=== PATIENT | female | born 1985 | race Caucasian/White ===

== ENCOUNTER 2020-03-01 10:46 | Emergency (ER) | payer OTHER, SELFPAY ==
[2020-03-01 11:03] VITALS: BP 127/79; PULSE 81; RESP 16; TEMP 37.1; O2SAT 99
--- NOTE | 2020-03-01 11:10 | ED.URI ---
HPI - URI/Sore Throat General Chief Complaint: Upper Respiratory Infection Stated Complaint: Congestion/fever Time Seen by Provider: 03/01/20 11:10 Source: patient and RN notes reviewed History of Present Illness HPI Narrative: Patient is a 34-year-old female who presents the urgent care with complaints of mild congestion and a low-grade fever of 99.7. Patient states that she took her temperature several times and it was 99.3 and 99.7 Fahrenheit. Patient has not taken anything for her symptoms and wanted to make sure it was not just seasonal allergies like her told her . Patient denies of any frequent coughing, sore throat, nausea, vomiting, body aches, fatigue. Denies of shortness of breath. No other acute complaints. No acute distress noted. Patient aware of the plan of care. Related Data Home Medications Medication Instructions Recorded Confirmed No Home Medications 03/01/20 03/01/20 Allergies Allergy/AdvReac Type Severity Reaction Status Date / Time ampicillin Allergy Severe hives Verified 03/01/20 11:11 Review of Systems Review of Systems: Narrative: CONSTITUTIONAL: Reports of a temperature of 99.7 Fahrenheit EYES: Denies visual changes, redness, or discharge. ENT: Denies rhinorrhea, sore throat, or otalgia. Reports of mild congestion CARDIOVASCULAR: Denies chest pain, palpitations, or edema. RESPIRATORY: Denies cough or dyspnea. GASTROINTESTINAL: Denies abdominal pain, nausea, vomiting, or diarrhea. GENITOURINARY: Denies dysuria or hematuria. SKIN: Denies rash or itching. MUSCULOSKELETAL: Denies back pain, joint pain, or myalgia. NEUROLOGIC: Denies headache, numbness, or weakness. All other systems reviewed are negative, except as documented in HPI. PMFSH Comments At the time of my signature, I reviewed and agree with the nursing past medical, surgical, social, and family history. There is no relevant family history pertinent to the patient complaint. Exam Narrative: Exam Narrative: GENERAL: This is a well-nourished, well-developed patient, in no apparent distress. HEAD: normocephalic, atraumatic. EYES: PERRL. Sclera clear/white. Vision is grossly intact. EARS: External ears normal, auditory canals clear and without drainage, TMs normal without perforation. Hearing grossly intact. NOSE: External nose normal with no obvious nasal discharge, nares without redness, no rhinorrhea. THROAT: Mucous membranes moist, posterior pharynx clear. Mild postnasal drainage NECK: Neck supple CARDIOVASCULAR: Regular rate and rhythm without murmurs, gallops, or rubs. RESPIRATORY: Clear to auscultation. Breath sounds equal bilaterally. No wheezes, rales, or rhonchi. SKIN: warm, intact with no suspicious lesions or rash, good texture and turgor. NEURO: awake, alert, and oriented to person, place and time. There were no obvious focal neurologic abnormalities. EXTREMITIES: No clubbing, cyanosis, or edema. Course Vital Signs Vital signs: Vital Signs Temperature 98.7 F 03/01/20 11:03 Pulse Rate 81 03/01/20 11:03 Respiratory Rate 16 03/01/20 11:03 Blood Pressure 127/79 03/01/20 11:03 Pulse Oximetry 99 03/01/20 11:03 Temperature 98.7 F 03/01/20 11:03 Pulse Rate 81 03/01/20 11:03 Respiratory Rate 16 03/01/20 11:03 Blood Pressure 127/79 03/01/20 11:03 Pulse Oximetry 99 03/01/20 11:03 Reviewed MDM - URI/Sore Throat MDM Narrative Medical decision making narrative: Advised the patient to increase fluids and rest if necessary. At this time, there is no need for COVID testing or antibiotic therapy. Symptoms are likely related to weather change and some possible mild seasonal allergies. Use [id number] medication such as Claritin or Zyrtec as needed. Temperature is currently afebrile. Be sure to use appropriate measures to check your temperature and a good thermometer. If you develop any increase in symptoms associated with temperature consistently over 100.4 Fahrenheit, nausea,
== END 2020-03-01 11:20 | disposition home or self-care (01) ==
PROVIDERS: Emergency Provider Nurse Practitioner Family
DX: R09.82 Postnasal drip (principal)
CPT/HCPCS: 99211; G0463

== ENCOUNTER 2023-07-26 05:44 | Emergency (ER) | payer OTHER, SELFPAY ==
[2023-07-26] VITALS (8 sets, daily range): BP systolic 103–119; BP diastolic 60–78; PULSE 88–124; RESP 16–28; TEMP 37.2; O2SAT 96–100
--- NOTE | ~2023-07-26 | XR_ITS ---
XR chest 2V DATE: 07/26/2023 06:45 INDICATION: Chest heaviness, shortness of breath TECHNIQUE: PA and lateral views COMPARISON: None FINDINGS: Normal heart size. No hilar or mediastinal enlargement. No pulmonary infiltrate or consolid ation, pleural effusion or pulmonary vascular congestion or pneumothorax. Included skeletal structures are unremarkable. Mild thoracic dextroscoliosis. IMPRESSION: No active cardiopulmonary disease Reviewed, dictated and finalized at location [facility]. [employer]
--- NOTE | 2023-07-26 05:55 | ECG_ITS ---
Measurements Intervals [place] Rate: 113 P: 67 ME: 145 QRS: 52 QRSD: 81 T: 67 QT: 313 QTc: 429 Interpretive Statements SINUS TACHYCARDIA RSR' IN V1 OR V2, PROBABLY NORMAL VARIANT NONSPECIFIC ST & T-WAVE ABNORMALITY- INFERIOR LEADS BASELINE ARTIFACT- I, II, AVR, AVL ABNORMAL ECG NO PREVIOUS ECG AVAILABLE FOR COMPARISON Electronically Signed On 07-26-2023 8:47:16 DINING ROOM TABLES SET UP ATTENDANT by Pawan Ruelas D.O.
[2023-07-26 06:29] LABS: Basophils Absolute Auto 0.1 K/mm3 (0.0-0.1); Basophils Percent Auto 0.3 % (0.2-1.2); Eosinophils Percent Auto 0.2 % (0-4.4); Hematocrit 39.5 % (37.0-47.0); Hemoglobin 12.9 g/dL (12.0-15.0); Immature Granulocyte Absolute 0.07 K/mm3 (0.00-0.031); Immature Granulocyte Percent A 0.4 % (0-0.5); Lymphocytes Absolute Auto 1.52 K/mm3 (0.9-3.2); Lymphocytes Percent Auto 8.7 % (18.3-44.2); Mean Corpuscular HGB Conc 32.7 g/dl (32-36); Mean Corpuscular Hemoglobin 29.6 pg (26-34); Mean Corpuscular Volume 90.6 fl (80-100); Mean Platelet Volume 10.1 fl (7.4-10.4); Monocytes Absolute Auto 0.9 K/mm3 (0.1-0.6); Monocytes Percent Auto 5.4 % (2.6-8.5); Neutrophils Absolute Auto 14.8 K/mm3 (1.3-6.7); Platelet Count Result 256 k/mm3 (150-375); Red Blood Count 4.36 M/mm3 (4.2-5.4); Red Cell Distribution Width 12.4 % (11.5-14.5); White Blood Count 17.4 K/mm3 (4.5-10.0)
[2023-07-26 06:37] LABS: Alanine Aminotransferase 27 U/L (6-35); Alkaline Phosphatase 38 U/L (38-126); Anion Gap 9 mmol/L (8-16); Aspartate Amino Transferase 41 U/L (14-36); Bilirubin,Total 0.7 mg/dL (0.2-1.3); Blood Urea Nitrogen 11 mg/dL (7-17); Calcium 8.6 mg/dL (8.4-10.2); Carbon Dioxide 25 mmol/L (22-30); Chloride 102 mmol/L (98-107); Estimated CRCL calculation 72 ml/min; Estimated Glomerular Filt Rate > 60; Glucose 105 mg/dL (65-110); Potassium 3.2 mmol/L (3.4-5.0); Sodium 136 mmol/L (137-145)
[2023-07-26 07:02] LABS: Influenza A QL RT-PCR Negative (Negative); Influenza B QL RT-PCR Negative (Negative); RSV RNA, RT-PCR Negative (Negative); SARS-CoV-2 RNA PCR Negative (Negative)
--- NOTE | 2023-07-26 07:36 | ED.SOB ---
HPI - SOB/Dyspnea General Chief Complaint: Shortness of Breath/Dyspnea Stated Complaint: vomiting Time Seen by Provider: 07/26/23 07:31 Source: patient Mode of arrival: ambulatory Limitations: no limitations History of Present Illness HPI Narrative: PATIENT IS 38 YEARS OLD WHITE FEMALE WHO, AT 3:00 A.M. COMPLAINING OF UNABLE TO BREATHE RIGHT, FEELING HEAVY, NO PAIN, WHEN SHE TAKES DEEP BREATH NOT FEELING NORMAL. SHE DENIES ANY CHEST PAIN OR SHORTNESS OF BREATH. PATIENT HAVE A LOT OF STRESS LATELY RELATED TO HER EX-, CURRENTLY ON SERTRALINE, HISTORY OF ANXIETY AND DEPRESSION. Related Data Allergies Allergy/AdvReac Type Severity Reaction Status Date / Time ampicillin Allergy Severe hives Verified 03/01/20 11:11 Review of Systems Review of Systems: All systems reviewed & are unremarkable except as noted in HPI and below PMFSH Social History Social History Gender identity (if verbalized by the patient): Female Course Reevaluation(s) Reevaluation #1: CURRENTLY PATIENT FEELING MUCH BETTER, SHE BELIEVED THAT STRESS CAUSING HER SYMPTOMS. Date: 07/26/23 Time: 11:33 Vital Signs Vital signs: Vital Signs Temperature 37.2 C 07/26/23 05:45 Pulse Rate 124 H 07/26/23 05:45 Respiratory Rate 16 07/26/23 05:45 Blood Pressure 103/60 07/26/23 05:45 Pulse Oximetry 100 07/26/23 05:45 Oxygen Delivery Room Air 07/26/23 05:45 Temperature 37.2 C 07/26/23 05:45 Pulse Rate 106 H 07/26/23 06:31 Respiratory Rate 22 H 07/26/23 06:31 Blood Pressure 118/69 07/26/23 06:30 Pulse Oximetry 98 07/26/23 06:31 Oxygen Delivery Room Air 07/26/23 06:25 MDM - SOB/Dyspnea MDM Narrative Medical decision making narrative: PATIENT PRESENTS WITH FEELING WEIRD WHEN SHE TAKES A DEEP BREATH. LONG HISTORY OF ANXIETY AND DEPRESSION, A LOT OF STRESS RELATED TO HER EX- WAITING, VITAL SIGNS ON ARRIVAL SHOWED NO ACUTE ABNORMALITIES, PHYSICAL EXAMINATION SHOWED TACHYCARDIA RESTLESS PATIENT, WORKUP TODAY SHOWED NO ACUTE ABNORMALITY TO EXPLAIN PATIENT CONDITION, ANXIETY, DEPRESSION OUR MY CONCERN. PATIENT WILL BE DISCHARGE WITH HYPERVENTILATION SYNDROME ON HYDRALAZINE. PATIENT WAS ADVISED TO FOLLOW-UP WITH HER FAMILY PHYSICIAN FOR POSSIBLE ADJUSTING SERTRALINE DOSE. Differential Diagnosis Differential diagnosis: Likely other (ANXIETY, DEPRESSION, PNEUMONIA, VIRAL INFECTION) Medical Records Attestation: I reviewed the patient's medical records. Lab Data Attestation: I reviewed the patient's lab results. 07/26/23 06:16 07/26/23 06:16 Labs: Lab Results 07/26/23 Range/Units 06:16 WBC 17.4 H (4.5-10.0) K/mm3 RBC 4.36 (4.2-5.4) M/mm3 Hgb 12.9 (12.0-15.0) g/dL Hct 39.5 (37.0-47.0) % MCV 90.6 (80-100) fl MCH 29.6 (26-34) pg MCHC 32.7 (32-36) g/dl RDW 12.4 (11.5-14.5) % Plt Count 256 (150-375) k/mm3 MPV 10.1 (7.4-10.4) fl Immature Gran % (Auto) 0.4 (0-0.5) % Neut % (Auto) 85.0 H (45.5-73.1) % Lymph % (Auto) 8.7 L (18.3-44.2) % [place] % (Auto) 5.4 (2.6-8.5) % Eos % (Auto) 0.2 (0-4.4) % Baso % (Auto) 0.3 (0.2-1.2) % Lymph # (Auto) 1.52 (0.9-3.2) K/mm3 [place] # (Auto) 0.9 H (0.1-0.6) K/mm3 Eos # (Auto) 0.0 (0-0.3) K/mm3 Baso # (Auto) 0.1 (0.0-0.1) K/mm3 Abs Immat Gran (auto) 0.07 H (0.00-0.031) K/mm3 Absolute Neuts (auto) 14.8 H (1.3-6.7) K/mm3 Absolute Nucleated RBC 0.0 (0.0-0.012) K/mm3 Nucleated RBC % 0.0 (0.0-0.2) % Sodium 136 L (137-145) mmol/L Potassium 3.2 L (3.4-5.0) mmol/L Chloride 102 (98-107) mmol/L Carbon Dioxide 25 (22-30) mmol/L Anion Gap 9 (8-16) mmol/L BUN 11 (7-17) mg/dL Creatinine 0.70 (0.7-1.0) mg/dL Estim Creat Clear Calc 72 ml/min Estimated GFR > 60 (59 - ) Glucose 105 (65-110) mg/dL Calcium 8.6 (8.4-10.2) mg/dL Total Bilirubin 0.7 (0.2-1.3) mg/dL AST 41 H (14-36) U/L ALT 27 (6-35) U/L Alkaline Phosphatase 38 (38-126) U/L Total Protein 7.0
[2023-07-26] MEDS: POTASSIUM CHLORIDE 20 MEQ PACKET (FOR LIQUID) 40 MEQ PO (07:52)
[2023-07-26 07:58] LABS: Alveolar/Arterial O2 Gradient 17.5 mmHg; Fractional Inspired Oxygen 21 %; HCO3 ABG 26.5 mEq/l (22.0-26.0); Oxygen Content ABG 18.8 %vol (16.0-22.0); Oxygen Saturation ABG 97.3 % (95.0-100.0); Oxyhemoglobin 95.7 % THb (90.0-100.0); PCO2 ABG 36.8 mmHg (35.0-45.0); PO2 ABG 88.2 mmHg (80.0-100.0); Total Hemoglobin 13.9 g/dL (12.0-18.0); pH ABG 7.475 (7.350-7.450)
[2023-07-26 07:59] LABS: Device ROOM AIR; Modified Allen's Test Pass; Site Drawn LEFT RADIAL
== END 2023-07-26 11:58 | disposition home or self-care (01) ==
PROVIDERS: Emergency Medicine; Emergency Provider Emergency Medicine
DX: R06.4 Hyperventilation (principal); Z20.822 Contact with and (suspected) exposure to COVID-19; F41.9 Anxiety disorder, unspecified; F32.A Depression, unspecified; R00.0 Tachycardia, unspecified; R94.31 Abnormal electrocardiogram [ECG] [EKG]
CPT/HCPCS: 36415; 36600; 71046; 80053; 82805; 85025; 87637; 93005; 99284; A9270